=== PATIENT | male | born 1980 | race Caucasian/White ===

== ENCOUNTER 2020-03-08 11:01 | Emergency (ER) | payer OTHER, SELFPAY ==
--- NOTE | ~2020-03-08 | XR_ITS ---
XR cervical spine 4-5V DATE: 03/08/2020 12:06 INDICATION: Posterior neck pain. No injury. TECHNIQUE: AP, open-mouth, lateral, swimmer views COMPARISON: None FINDINGS: There is straightening of the cervical spine. C1 and C2 are normally aligned and the odontoid process is intact. No fracture or dislocation or lock ed facet or prevertebral soft tissue swelling is evident. The cervical interspaces are preserved. IMPRESSION: Straightening Reviewed, dictated and finalized at location B. IMPRESSION: Straightening
--- NOTE | ~2020-03-08 | XR_ITS ---
XR thoracic spine min 4V DATE: 03/08/2020 12:06 INDICATION: Back pain. No injury. TECHNIQUE: AP, lateral, swimmer views COMPARISON: None FINDINGS: No fracture or dislocation. The thoracic pedicles are intact. No paraspinal soft tissue thi ckening. IMPRESSION: Negative Reviewed, dictated and finalized at location B. IMPRESSION: Negative
[2020-03-08 11:14] VITALS: BP 121/87; PULSE 75; RESP 16; TEMP 36.8; O2SAT 100
[2020-03-08] MEDS: KETOROLAC (*BKC) 60 MG/2 ML VIAL 30 MG IM (12:09)
[2020-03-08 13:42] VITALS: BP 122/75; PULSE 78; RESP 16; O2SAT 100
[2020-03-08 13:50] VITALS: BP 129/78; PULSE 78; RESP 16; O2SAT 100
--- NOTE | 2020-03-08 19:56 | ED.BACK ---
HPI - Back Pain/Injury General Chief Complaint: Back Pain/Injury Stated Complaint: CHRONIC BACK PAIN Time Seen by Provider: 03/08/20 11:29 Source: patient Mode of arrival: ambulatory Limitations: no limitations History of Present Illness HPI Narrative: Patient presents with chief complaint of pain in his upper thoracic and lower cervical area that has been worsening over the past week. 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 He denies direct trauma to his neck or thoracic area. He states that he has been taking Tylenol and Motrin at times with discomfort but today he felt that it be best to get evaluated to see what is going on with his upper back under recommendation by his . Patient denies numbness or loss of sensation or strength in his fingertips. Patient reports rotating his neck sometimes exacerbates his discomfort. Related Data Allergies Allergy/AdvReac Type Severity Reaction Status Date / Time No Known Allergies Allergy Verified 03/08/20 11:18 Review of Systems Review of Systems: Narrative: CONSTITUTIONAL: Denies fever, chills, or sweats. EYES: Denies visual changes, redness, or discharge. ENT: Denies rhinorrhea, congestion, sore throat, or otalgia. CARDIOVASCULAR: Denies chest pain, palpitations, or edema. RESPIRATORY: Denies cough or dyspnea. GASTROINTESTINAL: Denies abdominal pain, nausea, vomiting, or diarrhea. GENITOURINARY: Denies dysuria or hematuria. SKIN: Denies rash or itching. MUSCULOSKELETAL: Reports back pain, denies joint pain, or myalgia. NEUROLOGIC: Denies headache, numbness, dizziness, or weakness. PSYCHIATRIC: Denies anxiety or depression. [facility] Family History Family History (Updated 03/03/16 @ 23:21 by DOCTOR UNKNOWN) Mother Patient's mother is in good health Sibling Patient's sister is in good health Patient's brother is in good health Father Family history of malignant neoplasm Patient's father is Social History Social History Smoking status: Never smoker Alcohol intake: never Exam Narrative: Exam Narrative: GENERAL: Well-appearing, well-nourished, and in no acute distress. HEAD: Normocephalic, atraumatic. EYES: PERRLA and EOMI. ENT: Nares clear, no rhinorrhea or epistaxis. Mucous membranes moist. Oropharynx without tonsillar hypertrophy exudate or other lesions. Bilateral TMs pearly valdez nonbulging NECK: Supple. No adenopathy or masses. Tenderness with palpation of trapezius thoracic and distal cervical area. Taghtness noted to paracervical muscles especially to the right. No step-offs palpated. CHEST: Clear to auscultation. No respiratory distress. No wheezes rales or rhonchi HEART: Regular rate and rhythm. EXTREMITIES: Normal range of motion. No edema. SKIN: Warm, dry, no rash. NEURO: No focal deficits. Alert and oriented x3. PSYCH: Normal mood and affect. Course Vital Signs Vital signs: Vital Signs Temperature 98.3 F 03/08/20 11:14 Pulse Rate 75 03/08/20 11:14 Respiratory Rate 16 03/08/20 11:14 Blood Pressure 121/87 03/08/20 11:14 Pulse Oximetry 100 03/08/20 11:14 Temperature 98.3 F 03/08/20 11:14 Pulse Rate 78 03/08/20 13:50 Respiratory Rate 16 03/08/20 13:50 Blood Pressure 129/78 03/08/20 13:50 Pulse Oximetry 100 03/08/20 13:50 MDM - Back Pain/Injury MDM Narrative Medical decision making narrative: Discussed with patient stranding noted on x-ray. Patient will be prescribed anti-inflammatories and muscle relaxants. Patient encouraged to perform gentle stretching and also apply warm moist heat. Patient instructed to follow-up primary care for reevaluation because if symptoms persist he may need outpatient MRI for further investigation into his symptoms. Patient verbalized understanding, plan denies any other needs or concerns at this time. Differential Diagnosis Differential diagnosis:
== END 2020-03-08 13:51 | disposition home or self-care (01) ==
PROVIDERS: Emergency Provider Emergency Medicine
DX: S16.1XXA Strain of muscle, fascia and tendon at neck level, initial encounter (principal); X58.XXXA Exposure to other specified factors, initial encounter
CPT/HCPCS: 72050; 72074; 96372; 99283; J1885

== ENCOUNTER 2024-03-21 02:12 | Day surgery (SDC) | payer OTHER, SELFPAY ==
[2024-03-07 08:33] VITALS: BMI 24.0
[2024-03-21 12:31] VITALS: BP 113/84; PULSE 107; RESP 20; TEMP 36.4; O2SAT 100; BMI 22.9
[2024-03-21] MEDS: LACTATED RINGERS 1,000 ML 150 ML IV CONT (12:41)
--- NOTE | 2024-03-21 12:53 | PM.HPGS ---
History of Present Illness History of Present Illness Consent: Risks, benefits, and alternatives have been discussed and questions answered. Patient agrees to proceed with procedure. Chief complaint: GERD, Cyclic Vomiting, IBS Narrative: Young Neal is a 43 year old male with cyclic vomiting started about 14 months ago, he had up to 3 episodes of several days of n/v, last time went to ER in [place]. Here for egd and colonoscopy. Review of Systems Review of Systems: All systems reviewed & are unremarkable except as noted in HPI and below PMFSH Past Medical History Medical History (Updated 03/21/24 @ 12:54 by Donaldo Reyes MD) Cyclical vomiting with nausea Family History Family History (Updated 03/03/16 @ 23:21 by DOCTOR UNKNOWN) Mother Patient's mother is in good health Sibling Patient's sister is in good health Patient's brother is in good health Father Family history of malignant neoplasm Patient's father is Social History Social History Smoking status: Never smoker Alcohol intake: never Substance use type: does not use Living arrangements: with family Spiritual care concerns: No Meds Home Medications and Allergies Home Medications Medication Instructions Recorded Confirmed Type No Home Medications 03/07/24 03/21/24 History Allergies Allergy/AdvReac Type Severity Reaction Status Date / Time No Known Allergies Allergy Verified 03/21/24 12:29 Vital Signs Vital Signs - 24 hr 03/21/24 12:31 Temperature 97.6 F Pulse Rate 107 H Respiratory Rate 20 Blood Pressure 113/84 Pulse Oximetry 100 Oxygen Delivery Room Air Exam Const: General: comfortable and no acute distress HENMT: Face/Nose/Sinus: Normal nares present Eyes: General: appearance normal, both eyes and all related structures Neck: Neck: no JVD Resp: Auscultation: clear to auscultation bilaterally Cardio: Rate: regular rate Rhythm: regular rhythm GI: Inspection: non-distended GI Palp: Yes Soft to palpation Skin: General skin exam: normal color Neuro: General: gait normal Speech: normal speech Extrem: General: normal to inspection Psych: Mental Status: mental status grossly normal Assessment and Plan Assessment and plan (1) Cyclical vomiting with nausea: Code(s): R11.15 - Cyclical vomiting syndrome unrelated to migraine Status: Acute Assessment and Plan: egd and colonoscopy
--- NOTE | 2024-03-21 12:55 | P.PNAN_ITS ---
Anes - Initial Pre Proc Eval Procedure: Operation Date: 03/21/24 13:30 Proposed Procedures p Esophagogastroduodenoscopy & Colonoscopy - Donaldo Reyes MD Date/Time: 03/21/24 12:55 Surgeon: Donaldo Reyes MD Pre Op Diagnosis: GERD, Cyclic Vomiting, IBS Patient Data Age: 43 Gender: M Height: 1.75 m Weight: 70.6 kg Last Vital Signs Temp 97.6 F 03/21/24 12:31 Pulse 107 H 03/21/24 12:31 Resp 20 03/21/24 12:31 BP 113/84 03/21/24 12:31 Pulse Ox 100 03/21/24 12:31 O2 Del Method Room Air 03/21/24 12:31 Allergies Allergy/AdvReac Type Severity Reaction Status Date / Time No Known Allergies Allergy Verified 03/21/24 12:29 Home Medications Medication Instructions Recorded Confirmed Type No Home Medications 03/07/24 03/21/24 History Patient hx anesthesia problems: none Family hx anesthesia problems: none Results Review: All pre-operative results and documents have been reviewed as part of the pre- operative evaluation. [facility] Past Medical History Medical History (Updated 03/21/24 @ 12:54 by Donaldo Reyes MD) Cyclical vomiting with nausea Family History Family History (Updated 03/03/16 @ 23:21 by DOCTOR UNKNOWN) Mother Patient's mother is in good health Sibling Patient's sister is in good health Patient's brother is in good health Father Family history of malignant neoplasm Patient's father is Social History Social History Smoking status: Never smoker Alcohol intake: never Substance use type: does not use Living arrangements: with family Spiritual care concerns: No Anes - Eval Final PreProcedure Day of Procedure 03/21/24 12:55 Patient weight: normal Heart: regular rate and rhythm Lungs: clear to auscultation Airway: Mallampati scale class II Neurological: alert and oriented Last oral intake: >/= 8 hours ASA classification: I Emergent: no Anesthetic plan: proceed Anesthesia type and monitoring: general GIVS and standard monitoring Results Review: All pre-operative results and documents have been reviewed as part of the pre- operative evaluation. Informed Consent: The patient's anesthetic plan and its attendant risks and benefits were discussed with the patient/family/POA. Questions were solicited and answers provided to the satisfaction of the patient/family/POA.
--- NOTE | 2024-03-21 13:05 | SUR.OPER ---
EGD [id number]. Colonoscopy start 1307.
[2024-03-21 13:16] VITALS: BP 111/80; PULSE 87; RESP 25; O2SAT 99
[2024-03-21 13:26] VITALS: BP 127/86; PULSE 68; RESP 20; O2SAT 99
[2024-03-21 13:36] VITALS: BP 123/86; PULSE 64; RESP 18; O2SAT 100
[2024-03-21] MEDS: ONDANSETRON INJ 4 MG/2 ML VIAL IV PUSH (13:43)
--- NOTE | 2024-03-21 13:44 | SUR.PHASEII ---
1316: PT ARRIVED TO POST OP SLEEPING. SPOUSE AT BEDSIDE 1320: PT WOKE UP WITH LARGE AMOUNT OF THICK CLEAR SPUTUM, PT ABLE TO EXCRETE SPUTUM ON HIS OWN, PT THEN VOMITED MODERATE AMOUNT OF EMESIS. PT DENIES NAUSEA AT THIS TIME AND STATES FEELS BETTER AFTER VOMITING. 1335: PT CONTINUES TO VOMIT SMALL AMOUNTS OF CLOUDY AND CLEAR THICK SPUTUM, PT STATES HE IS NAUSEATED, DR KIMBALL NOTIFIED AND ORDERS RECEIVED. 1342: PT GIVEN ZOFRAN IVP PER ORDERS, PT AWAKE AND ALERT, SITTING UP, DENIES ANY OTHER SYMPTOMS. 1352: PT STATES HE IS FEELING BETTER WITH SLIGHT NAUSEA, DR KIMBALL UPDATED, NO NEW ORDERS. 1405: PT UP TO CHAIR, DRESSED HIMSELF, DENIES NAUSEA/VOMITING, STATES HE IS OK TO GO HOME.
== END 2024-03-21 14:09 | disposition home or self-care (01) ==
PROVIDERS: PCP Emergency Medicine; Visit Provider Internal Medicine Gastroenterology
PROC: 0DJ08ZZ Inspection of Upper Intestinal Tract, Via Natural or Artificial Opening Endoscopic (ICD-10-PCS; CPT 43235; principal; 2024-03-21 13:30)
DX: Z12.11 Encounter for screening for malignant neoplasm of colon (principal); K58.9 Irritable bowel syndrome, unspecified; D12.0 Benign neoplasm of cecum; K64.8 Other hemorrhoids; K21.9 Gastro-esophageal reflux disease without esophagitis; R11.15 Cyclical vomiting syndrome unrelated to migraine; K44.9 Diaphragmatic hernia without obstruction or gangrene
CPT/HCPCS: 45385; 43239; 88305; J2405; J2704; J7120